=== PATIENT | female | born 1980 | race African-American/Black ===

== ENCOUNTER 2024-11-04 00:55 | Emergency (ER) | payer MEDICAID ==
[~2024-11-04] VITALS: Ht 167.6 cm; Wt 106.3 kg
[2024-11-04 01:09] VITALS: TEMP 97.8
[2024-11-04] MEDS ORDERED: HYDR10TA31 PO (01:16)
[2024-11-04] MEDS ORDERED: AMLO2.5T96 PO (01:16)
[2024-11-04] MEDS ORDERED: METO25 PO (01:16)
[2024-11-04] MEDS ORDERED: CLON0.1T PO (01:16)
[2024-11-04] MEDS: HydrALAZINE HCL 25 MG TABLET PO ONE (01:59)
[2024-11-04 02:21] LABS: CALCIUM, TOTAL 8.8 mg/dL (8.8-10.5); CREATININE 4.1 mg/dL (0.60-1.30); POTASSIUM 3.9 mmol/L (3.5-5.1)
[2024-11-04 02:27] LABS: BASOPHILS % (AUTO) 0.2 % (0.0-2.0); EOSINOPHILS % (AUTO) 1.8 % (1.0-6.0); HEMATOCRIT 31.6 % (36-46); HEMOGLOBIN 10.1 g/dL (12.0-16.0); LYMPHOCYTES # (AUTO) 1.7 K/uL (1.0-4.8); LYMPHOCYTES % (AUTO) 17.1 % (22.0-44.0); MEAN CORPUSCULAR HEMOGLOBIN 27.7 pg (26.0-34.0); MEAN CORPUSCULAR HGB CONC 31.9 G/dL (31.0-37.0); MEAN CORPUSCULAR VOLUME 87 fL (80-100); MONOCYTES # (AUTO) 0.9 K/uL (0.1-1.0); MONOCYTES % (AUTO) 9.8 % (2.0-9.0); NEUTROPHILS # (AUTO) 6.9 K/uL (1.8-7.7); NEUTROPHILS % (AUTO) 71.1 % (40.0-70.0); PLATELET COUNT (AUTO) 236 K/uL (150-450); RED BLOOD CELL COUNT(AUTO) 3.64 MIL/uL (4.00-5.20); RED CELL DISTRIBUTION WIDTH 15.5 % (11.5-14.5); WHITE BLOOD COUNT (AUTO) 9.7 K/uL (4.5-11.0)
[2024-11-04 02:31] LABS: TROPONIN I-HIGH SENSITIVITY 81 ng/L (<51)
[2024-11-04] MEDS ORDERED: AMLO10TA55 PO (02:32)
[2024-11-04] MEDS ORDERED: FURO80TA3 PO (02:32)
[2024-11-04] MEDS ORDERED: METO-391 PO (02:32)
[2024-11-04] MEDS ORDERED: CLON1PAT13 TD (02:54)
[2024-11-04] MEDS ORDERED: ACETAMINOPHEN 325 MG TABLET PO PRN (03:00)
[2024-11-04] MEDS ORDERED: IPRATROPIUM BROMIDE 0.5 MG/2.5 ML NEB SOLUTION NEB PRN (03:00)
[2024-11-04] MEDS ORDERED: ONDANSETRON HCL 4 MG/2 ML VIAL IVP PRN (03:00)
[2024-11-04] MEDS ORDERED: CefTRIAXone 1 GM/DEXTROSE 50 ML IV ONE (03:00)
[2024-11-04] MEDS: NITROGLYCERIN 2% (1 GM=INCH) OINTMENT PACKET TP SCH (03:00)
[2024-11-04] MEDS ORDERED: HydrALAZINE HCL 20 MG/ML VIAL IVP PRN (03:00)
[2024-11-04] MEDS ORDERED: ALBUTEROL SULFATE 2.5 MG/0.5 ML NEB SOLUTION NEB PRN (03:00)
[2024-11-04] MEDS ORDERED: VANCOMYCIN HCL 1 GM in DEXTROSE 5%-WATER 250 ML IV ONE (03:15)
[2024-11-04 03:17] LABS: LACTIC ACID 0.5 mmol/L (0.4-2.0)
[2024-11-04 03:18] LABS: PROTHROMBIN TIME 10.3 SEC (9.4-11.6)
[2024-11-04] MEDS: CloNIDine HCL 0.1 MG TABLET PO ONE (03:30)
[2024-11-04] MEDS: CefTRIAXone 1 GM/DEXTROSE 50 ML IV SCH (04:26)
[2024-11-04] MEDS: LABETALOL HCL 5 MG/ML 20 ML VIAL IVP ONE (04:26)
[2024-11-04] MEDS: SODIUM CHLORIDE 0.9% 250 ML IV ONE (04:26)
[2024-11-04] MEDS: BUMETANIDE 0.25 MG/ML 4 ML VIAL IVP ONE (04:26)
[2024-11-04] MEDS: AZITHROMYCIN 500 MG/NS 250 ML IV SCH (04:27)
[2024-11-04 04:37] LABS: APPEARANCE,URINE HAZY (CLEAR); BILIRUBIN,URINE NEGATIVE (NEGATIVE); COLOR,URINE LIGHT YELLOW (YELLOW); GLUCOSE, URINE (UA) NEGATIVE (NEGATIVE); KETONES,URINE NEGATIVE (NEGATIVE); LEUKOCYTE ESTERASE ,URINE NEGATIVE (NEGATIVE); NITRATE,URINE NEGATIVE (NEGATIVE); OCCULT BLOOD,URINE NEGATIVE (NEGATIVE); PROTEIN,URINE 300-600,SEE CONFIRM mg/dL (NEGATIVE); SPECIFIC GRAVITIY, URINE 1.005 (1.003-1.030); UROBILINOGEN,URINE <=1.0 mg/dL (<=1.0)
[2024-11-04] MEDS: ASPIRIN 81 MG CHEWABLE TABLET PO ONE (04:45)
[2024-11-04 04:46] LABS: SULFOSALICYLIC ACID,URINE 3+ (Negative)
[2024-11-04 04:48] LABS: BACTERIA,URINE Rare /HPF (None Seen); RBC,URINE 0-2 /HPF (0-2); WBC,URINE 0-2 /HPF (0-5)
[2024-11-04 04:57] LABS: COVID AG,FIA SOURCE NASAL SWAB
[2024-11-04 05:28] LABS: INFLUENZA TYPE A NEGATIVE FOR TYPE A (NEGATIVE); INFLUENZA TYPE B NEGATIVE FOR TYPE B (NEGATIVE)
[2024-11-04 05:29] LABS: SARS-COV2 (COVID) ANTIGEN,FIA Negative (Negative)
[2024-11-04 07:45] VITALS: BP 165/103; PULSE 79; RESP 16; O2SAT 98
[2024-11-04] MEDS: HEPARIN SODIUM,PORCINE 5,000 UNITS/ML VIAL SQ SCH (08:00)
[2024-11-04] MEDS: DOCUSATE SODIUM 100 MG CAPSULE PO SCH (08:03)
[2024-11-04] MEDS: AmLODIPine BESYLATE 10 MG TABLET PO SCH (08:03)
[2024-11-04] MEDS: METOPROLOL SUCCINATE 50 MG ER TABLET PO SCH (08:19)
== END 2024-11-04 09:39 | disposition left against medical advice (07) ==
LOC: EMS 00:55 → UNDOADMIN 02:59 → EDH 02:59 → UNDODISIN 08:40
DX: I10 Essential (primary) hypertension (principal); I13.2 Hypertensive heart and chronic kidney disease with heart failure and with stage 5 chronic kidney disease, or end stage renal disease; N18.6 End stage renal disease; F17.210 Nicotine dependence, cigarettes, uncomplicated; Z98.890 Other specified postprocedural states; Z20.822 Contact with and (suspected) exposure to COVID-19
CPT/HCPCS: 99291; 96365; 96375; 71045; 87426; 80048; 81001; 81002; 83605; 84484; 85025; 85610; 87040; 87804; 93005; 96368; 84145; 81003; 36415; J0456; J3490 ×2; J0696; J7040; 99285; G0378; J3370; J7060